=== PATIENT | female | born 1995 | race Caucasian/White ===

== ENCOUNTER 2022-02-05 21:41 | Emergency (ER) | payer OTHER, SELFPAY ==
[2022-02-06] MEDS ORDERED: Dexamethasone 4 MG TAB ONE (01:08)
[2022-02-06] MEDS ORDERED: AMOXicillin 250 MG CAP ONE (01:09)
== END 2022-02-06 01:31 | disposition home or self-care (01) ==
LOC: MADERS 21:41
DX: J02.0 Streptococcal pharyngitis (principal); I10 Essential (primary) hypertension; Z20.822 Contact with and (suspected) exposure to COVID-19
CPT/HCPCS: 87430; 87804; 93005; J8540; U0003; U0005